=== PATIENT | male | born 1995 | race Caucasian/White ===

== ENCOUNTER 2021-03-31 12:46 | Emergency (ER) | payer OTHER ==
[~2021-03-31] VITALS: Ht 177.8 cm; Wt 73.0 kg
[2021-03-31] MEDS ORDERED: LORAZEPAM 2MG/ML CPJ IM ONE (13:30)
[2021-03-31] MEDS ORDERED: HALOPERIDOL LACTATE 5MG/ML VIAL IM ONE ×2 (13:30→14:15)
[2021-03-31 14:46] LABS: BASOPHILS % 0.3 % (0.0-2.0); EOSINOPHILS % 0.6 % (0.0-5.0); HEMOGLOBIN. 16.8 g/dL (14.0-18.0); LYMPHOCYTES % 13.5 % (20.0-50.0); MEAN CORPUSCULAR VOLUME 92.2 fL (80.0-94.0); MEAN PLATELET VOLUME 7.6 fl (7.4-10.4); MONOCYTES % 7.9 % (2.0-8.0); NEUTROPHILS % 77.7 % (40.0-76.0); PLATELET 372 x1000/uL (130-400); RED CELL DISTRIBUTION WIDTH 12.7 % (11.6-14.6)
[2021-03-31 14:52] LABS: CHLORIDE 105 mEq/L (98-107)
[2021-03-31 14:56] LABS: ETHANOL BLOOD < 10 mg/dL
[2021-03-31] MEDS ORDERED: LIDOCAINE HCL 1% 20ML VIAL (Pyxis) INJ INFIL ONE (15:45)
[2021-03-31] MEDS ORDERED: NIMODIPINE 30MG CAPSULE PO NR (16:15)
[2021-03-31] MEDS ORDERED: LEVETIRACETAM 500MG PREMIX 100 ML IV NR (16:15)
[2021-03-31 19:41] VITALS: BP 120/95
[2021-03-31 19:59] LABS: *AMPHETAMINES SCREEN URINE PRESUMTIVE POSITIVE (NEGATIVE); *BARBITURATES SCREEN URINE NEGATIVE (NEGATIVE); *BENZODIAZEPINES SCREEN URINE NEGATIVE (NEGATIVE); *COCAINE SCREEN URINE NEGATIVE (NEGATIVE)
[2021-03-31 20:00] LABS: CANNABINOID URINE SCREEN NEGATIVE (NEGATIVE); METHADONE URINE SCREEN NEGATIVE (NEGATIVE); OPIATES URINE SCREEN NEGATIVE (NEGATIVE); PHENCYCLIDINE URINE SCREEN NEGATIVE (NEGATIVE)
== END 2021-03-31 20:01 | disposition short-term general hospital (02) ==
LOC: ER 12:46
DX: S01.81XA Laceration without foreign body of other part of head, initial encounter (principal); S06.0X9A Concussion with loss of consciousness of unspecified duration, initial encounter; Y08.89XA Assault by other specified means, initial encounter; Y93.9 Activity, unspecified; Y92.9 Unspecified place or not applicable
CPT/HCPCS: 12004; 12011; 36415; 70450; 80048; 80305; 80320; 85025; 96365; 96366; 96372; 99291; J1630; J1953; J2060; J3490; Z7610; 99285; G0480

== ENCOUNTER 2021-04-06 21:59 | Emergency (ER) | payer OTHER ==
[~2021-04-06] VITALS: Ht 175.3 cm; Wt 87.0 kg
[2021-04-06 22:07] VITALS: BP 123/81
== END 2021-04-06 22:29 | disposition home or self-care (01) ==
LOC: ER 22:24
DX: Z13.9 Encounter for screening, unspecified (principal)
CPT/HCPCS: 99283